=== PATIENT | male | born 1985 | race Caucasian/White ===

== ENCOUNTER 2018-06-24 10:40 | Inpatient (IN) | payer OTHER ==
[2018-06-24] MEDS ORDERED: MORPHINE SULFATE INJ 10 MG/ML VIAL IV ONE ×4 (10:47→12:46)
[2018-06-24] MEDS ORDERED: SODIUM CHLORIDE 0.9% 1000ML 1,000 ML IVS ONE (10:47)
--- NOTE | 2018-06-24 11:27 | CT ---
EXAM DESCRIPTION: Abdomen/Pelvis w/Contrast: Computed Tomography. CLINICAL HISTORY: 33 years Male crush injury to abdomen in oil field COMPARISON: Radiographs of the chest and right femur on the same visit. TECHNIQUE: Spiral-axial scans at 5 x 5 mm intervals through the abdomen and pelvis, after nonionic IV contrast without oral contrast. Axial 2.5 mm reconstructions. Coronal and sagittal 2.0 mm reconstructions. No delayed scans. No adverse reactions. Total Exam DLP: 479.9 mGy-cm. This exam was performed according to our departmental dose-optimization program which includes automated exposure control, adjustment of the mA and/or kV according to patient size and/or use of iterative reconstruction technique; to reduce radiation dose to as low as reasonably achievable (ALARA). FINDINGS: Lung bases and pleura: Negative. Liver, Stomach, Spleen, Adrenal Glands: Normal enhancement with no focal lesions. Craniocaudal dimension of the right lobe 19.4 cm. Minimal fluid in the stomach. Other solid organs are negative. Pancreas, Gallbladder, Ducts: Gallbladder is visualized. No duct dilation. Pancreas negative. Kidneys and Ureters: No contrast extravasation or evidence of trauma. No perirenal contrast or fatty stranding. No hydronephrosis with normal size and density. Mesentery: No free fluid or free air. No contrast extravasation into the peritoneum. No soft tissue mass. Aorta: Normal contour with no para-aortic soft tissue mass or contrast extravasation. Small Bowel: Normal caliber with diffuse fluid minimal gas. Terminal Ileum/Cecum: Normal caliber. Appendix not seen. Limited visualization of the mesentery. Colon: Proximal and mid colon slightly distended by gas and fecal matter. No distention distally. Fecal matter involving most of the colon. Pelvic Organs: No fluid or contrast in the anterior peritoneal reflection. Urinary bladder well-distended with contrast material. Spine and Bony Pelvis: Unremarkable. Abdominal Wall/Back Soft Tissues: Negative. IMPRESSION: 1. No free air or free fluid in the abdomen or pelvis. No contrast extravasation. No organ laceration or fracture is noted. 2. Mild hepatomegaly right lobe, no hematoma or subcapsular fluid. Electronically signed by: Shlomo Rowland MD 06/24/2018 11:25 AM GATE AGENT
--- NOTE | 2018-06-24 11:38 | RAD ---
EXAM DESCRIPTION: Femur, right: CR/DR/XR CLINICAL HISTORY: 33 years Male crush injury to abdomen in oil field COMPARISON: None. TECHNIQUE: 2 views right femur AP. Lateral. Upper and lower. Impression: Normal bone density. Cortex intact. No other fracture. No significant soft tissue swelling. No abnormal radiodense objects in the soft tissues. Electronically signed by: Shlomo Rowland MD 06/24/2018 11:36 AM [facility]
--- NOTE | 2018-06-24 11:40 | RAD ---
EXAM DESCRIPTION: Chest,1 View: CR/DR/XR. CLINICAL HISTORY: 33 years Male crush injury to abdomen in oil field COMPARISON: None. TECHNIQUE: ONE VIEW PORTABLE. AP 1054 hours, semierect position. IMPRESSION: Decreased inspiratory effort. No pulmonary contusion. No pleural effusion or pneumothorax. Heart size upper normal limits. No mediastinal widening. No pulmonary vascular congestion. Electronically signed by: Shlomo Rowland MD 06/24/2018 11:37 AM OCEAN BIOLOGIST
--- NOTE | 2018-06-24 12:19 | ED.PDOC ---
History of Present Illness - General Chief Complaint: Trauma Stated Complaint: pinned between rig and pump nino Time Seen by Provider: 06/24/18 10:45 Source: patient Exam Limitations: no limitations - History of Present Illness Initial Comments: the patient is a 33-year-old male presenting to the emergency room after having been pinned between an oil rig truck and the pumpjack. He was probably pinned for less than 5 minutes. the patient was able to walk after that was significant difficulty. He has severe pain in his right lower back, his abdomen and his pelvis. He does have indentions into his skin over his right upper buttock, his left upper thigh, his left anterior pelvis and he has a wire coil rope abrasion to the right upper quadrant anteriorly. there is no other deformity of the legs and he moves them well. Pulses are strong in the feet. Sensation is preserved. Areas surrounding the indentions are obviously uncomfortable to palpation. no obvious lacerations are seen. The pelvis does appear to be stable. His abdomen is sore to palpation primarily towards the right upper abdomen but also somewhat in general. The patient is very anxious. No chest pain or shortness of breath. He moves his upper extremities well. No evidence of any head or neck injury. Timing/Duration: other - Probably less than 5 minutes Severity: severe Improving Factors: nothing, medication Worsening Factors: movement Associated Symptoms: nausea/vomiting - mild nausea Allergies/Adverse Reactions: Allergies Sulfa Antibiotics Allergy (Verified 06/24/18 10:54) Home Medications: Ambulatory Orders Paxil 06/24/18 Review of Systems - Review of Systems Constitutional: States: no symptoms reported EENTM: States: no symptoms reported Respiratory: States: no symptoms reported Cardiology: States: no symptoms reported Gastrointestinal/Abdominal: States: see HPI Genitourinary: States: no symptoms reported Musculoskeletal: States: see HPI, back pain Skin: States: see HPI Neurological: States: anxiety Endocrine: States: no symptoms reported All other Systems: No Change from Baseline Past Medical History (General) - Patient Medical History Hx Stroke: No Hx Congestive Heart Failure: No Hx Diabetes: No Surgical History: tonsillectomy - Vaccination History Hx Tetanus, Diphtheria Vaccination: Yes Hx Influenza Vaccination: No - Social History Hx Tobacco Use: Yes Family Medical History - Family History Father Family History: Unknown Living Status: Unknown Physical Exam - Physical Exam General Appearance: Alert, Anxious, Obvious distress Eye Exam: bilateral normal Ears, Nose, Throat: hearing grossly normal, normal ENT inspection Neck: full range of motion, supple Respiratory: lungs clear, normal breath sounds, no respiratory distress, no accessory muscle use Cardiovascular/Chest: normal peripheral pulses, regular rate, rhythm, no edema Peripheral Pulses: radial,right: 2+, radial,left: 2+, dorsalis pedis,right: 2+, dorsalis pedis,left: 2+ Gastrointestinal/Abdominal: tenderness, other - see history of present illness. No palpable mass. Rectal Exam: deferred Back Exam: muscle spasm - to the right upperr buttock region, other - see history of present illness. No pain to the left side. No real spinnous process tenderness. No obvious step-off. Extremity: normal range of motion, non-tender, normal inspection, no pedal edema, normal capillary refill Neurologic: research affiliate II-XII nml as tested, alert, normal mood/affect, oriented x 3 Skin Exam: other - see history of present illness Comments: Vital Signs - 24 hr 06/24/18 06/24/18 06/24/18 10:52 11:15 11:30 Temperature 96.8 F L Pulse Rate [ 63 79 75 Left Brachial] Respiratory 20 22 22 Rate Blood Pressure 114/56 119/70 113/61 [Left Arm] O2 Sat by Pulse 99 97 97 Oximetry Progress - Progress Progress: 06/24/18 12:23 the patient is a 33-year-old male presenting to the emergency room secondary to a crush injury to his lower torso and pelvis. The patient is having substantial pain and has received several doses of morphine. He is also receiving a liter of IV fluids. I'm going to go ahead and give the patient in dose of heparin for blood clot prophylaxis as there is no evidence of active bleeding. Pending at this time is a lactic acid, muscle enzymes, d-dimer as well as amylase and lipase. Lactic acid, muscle enzymes and d-dimer will likely be elevated but these are simply for a baseline for following. CT scan of the abdomen and pelvis shows no evidence of pathology. Chest x-ray shows no evidence of any acute pathology. X-ray of the right femur shows no evidence of any acute pathology. The patient is going to be admitted for observation overnight to make sure he does not develop any significant complications from the crush injury. I do expect that he will develop some degree of rhabdomyolysis secondary to the crush injury. Additionally where the maximum points of pressure were applied he may develop some necrosis of the skin. There is no way to prevent this but he does need to be followed. Vital signs are remaining s table. No evidence of any internal bleeding. At the very least he will end up being sore for the next month. admit for observation overnight. - Results/Orders Results/Orders: Laboratory Tests 06/24/18 06/24/18 06/24/18 10:45 10:46 10:46 WBC 10.8 RBC 4.19 L Hgb 13.6 L Hct 39.5 L MCV 94.3 H MCH 32.4 H MCHC 34.4 RDW 13.2 Plt Count 277 MPV 8.7 Absolute Neuts (auto) 6.80 Absolute Lymphs (auto) 2.90 Absolute Monos (auto) 1.00 H Absolute Eos (auto) 0.10 Absolute Basos (auto) 0.00 Neutrophils % 62.9 Lymphocytes % 26.9 Monocytes % 9.3 H Eosinophils % 0.5 L Basophils % 0.4 Sodium 135 Potassium 3.3 L Chloride 104 Carbon Dioxide 24 Anion Gap 10.3 L BUN 20 H Creatinine 1.11 BUN/Creatinine Ratio 18.0 Random Glucose 136 H Serum Osmolality 274.8 L Lactic Acid 1.2 Calcium 8.4 Total Bilirubin 0.4 AST 75 H ALT 84 H Alkaline Phosphatase 77 Serum Total Protein 6.7 Albumin 3.9 Globulin 2.8 Albumin/Globulin Ratio 1.4 Urine Color Urine Appearance Urine pH Ur Specific [place] Urine Protein Urine Glucose (UA) Urine Ketones Urine Blood Urine Nitrite Urine Bilirubin Urine Urobilinogen Ur Leukocyte Esterase Urine RBC Urine WBC Ur Epithelial Cells Urine Bacteria 06/24/18 11:32 WBC RBC Hgb Hct MCV MCH MCHC RDW Plt Count MPV Absolute Neuts (auto) Absolute Lymphs (auto) Absolute Monos (auto) Absolute Eos (auto) Absolute Basos (auto) Neutrophils % Lymphocytes % Monocytes % Eosinophils % Basophils % Sodium Potassium Chloride Carbon Dioxide Anion Gap BUN Creatinine BUN/Creatinine Ratio Random Glucose Serum Osmolality Lactic Acid Calcium Total Bilirubin AST ALT Alkaline Phosphatase Serum Total Protein Albumin Globulin Albumin/Globulin Ratio Urine Color Yellow Urine Appearance Clear Urine pH 5.5 Ur Specific [place] 1.025 Urine Protein Trace Urine Glucose (UA) Negative Urine Ketones Trace Urine Blood Negative Urine Nitrite Negative Urine Bilirubin Negative Urine Urobilinogen 0.2 Ur Leukocyte Esterase Negative Urine RBC 0 Urine WBC 0 Ur Epithelial Cells 0 Urine Bacteria 0 Departure - Departure Clinical Impression: Inadequate pain control Crushing injury of abdomen Qualifiers: Encounter type: initial encounter Qualified Code(s): S38.1XXA - Crushing injury of abdomen, lower back, and pelvis, initial encounter Disposition: Admit Patient Departure Forms: ED Discharge - Pt. Copy, Patient Portal Self Enrollment Referrals: Flori Sosa NP [Primary Care Provider] - 1-2 Weeks Home Medications: Ambulatory Orders Paxil 06/24/18 Decision To Admit - Decistion To Admit Decision to Admit Reason: Medical Nature Decision to Admit Date: 06/24/18 Decision to Admit Time: 12:27
[2018-06-24] MEDS ORDERED: HEPARIN SODIUM (PORCINE) 5,000 U/ML VIAL SUBCU ONE (12:46)
[2018-06-24] MEDS ORDERED: DEX 5% W/NACL 0.45% 1000ML 1,000 ML IVS ONE (13:53)
--- NOTE | 2018-06-24 14:03 | HP ---
SUPERVISING PHYSICIAN: Marciano Alberto MD CHIEF COMPLAINT: Trauma. HISTORY OF PRESENT ILLNESS: This is a 33-year-old male patient who was brought to the Emergency Room after he was pinned between an oil rig truck and the pump nino. He was pinned for less than 5 minutes. He was able to walk after the injury, but it was with significant difficulty. The pain was mostly on his right side from the upper abdomen to the top of his thigh. He has indentions in his abdomen as well as across his hips and the top of his thighs from where he was pinned. Sensation was preserved. His pulses to his feet were strong. In the Emergency Room, his vital signs showed temperature 96.8, heart rate 63, blood pressure 114/56, respiratory rate 20, O2 saturation 99%. Labs were drawn. His WBCs were 10.8, hemoglobin 13.6, hematocrit 39.5. D-dimer 11.42. Chemistry showed sodium 135, potassium 3.3, chloride 104, carbon dioxide 24, BUN 20, creatinine 1.11, glucose 136, serum osmolality 274.8. AST 75, ALT 84. CPK 1,429, CK-MB 25. His initial lactic acid was 1.2 with a followup lactic acid of 0.8. Urinalysis was within normal limits. His CT of the abdomen and pelvis showed no free air or free fluid in the abdomen or pelvis, no contrast extravasation, no organ laceration or fracture noted. Mild hepatomegaly, right lobe, was noted. No hematoma or subcapsular fluid. His femur x-ray showed normal bone density, cortex intact. No other fracture. No significant soft tissue swelling. No abnormal radiodense objects in the soft tissue. His chest x-ray showed decreased inspiratory effort, no pulmonary contusion, no pleural effusion or pneumothorax. Heart size upper normal limits. No mediastinal widening, no pulmonary vascular congestion. Dr. Sandoval was consulted and saw him in the Emergency Room. He was given pain medications and fluids in the Emergency Room as well as some heparin. I was called for admission to the hospital. PAST MEDICAL HISTORY: 1. Depression. PAST SURGICAL HISTORY: 1. Tonsillectomy and adenoidectomy. OUTPATIENT MEDICATIONS: None. ALLERGIES: SULFA. SOCIAL HISTORY: He smokes one to two packs of cigarettes daily. He drinks alcohol moderately. He has a past history of marijuana use. REVIEW OF SYSTEMS: GENERAL: Negative for fever, fatigue or weight changes. HEENT: Negative for sinus symptoms, ear pain, vision changes or shortness of breath. RESPIRATORY: Negative for wheezing, coughing or shortness of breath. CARDIAC: Negative for chest pain, palpitations or tachycardia. GASTROINTESTINAL: As per history of present illness. GENITOURINARY: Negative for hematuria, dysuria or polyuria. MUSCULOSKELETAL: As per history of present illness. INTEGUMENTARY: As per history of present illness. NEUROLOGIC: Negative for headache, dizziness or seizures. PSYCHIATRIC: Positive for anxiety and depression. HEMATOLOGIC: Negative for easy bruising or bleeding problems. PHYSICAL EXAMINATION: VITAL SIGNS: Temperature 99.2. Heart rate 71. Blood pressure 135/71. Respiratory rate 18. O2 saturation 96% on room air. GENERAL: This is a 33-year-old male patient who is lying in his hospital bed. He is in no acute distress. HEENT: Normocephalic, atraumatic. Oropharynx is clear. NECK: Supple without mass. RESPIRATORY: Essentially clear to auscultation bilaterally. CHEST: There is equal rise and fall of the chest with inspiration and expiration. CARDIOVASCULAR: Regular rate and rhythm. GASTROINTESTINAL: Abdomen is soft, nondistended. It is diffusely tender to the right side that extends to the posterior area. BACK: There is no bruising, but he does have mild right CVA tenderness. EXTREMITIES: No cyanosis, clubbing or edema. He has normal range of motion. NEUROLOGIC: Awake, alert and oriented times three. Cranial nerves II-XII are grossly intact. SKIN: He has several areas on his abdomen and across his right thigh area with some mild contusions and erythematous area from the pressure of the injury. LABORATORY: Labs and films are as per history of present illness. IMPRESSION: 1. Crush injury, mostly right sided, especially to the right upper leg, the right abdomen and the right back with no apparent major internal injury. 2. Elevated CPK with significant muscle injury related to #1. 3. Elevated liver function tests. 4. Mild hypokalemia. PLAN: We will admit the patient to the hospital. He will be NPO overnight and we will give him fluids. I have also typed and crossed him for packed red blood cells. We will do serial CPKs and repeat his lab in the morning. He will have a proton pump inhibitor for ulcer prophylaxis, Zofran as antiemetic, SCDs for DVT prophylaxis and I will give him Dilaudid for pain medication. We will re- start his Paxil. Other traumatic injuries will be as per the recommendations of Dr. Sandoval. He will also be on telemetry and pulse oximetry. We will continue to monitor the patient closely and follow as needed. #[id number] [facility]
--- NOTE | 2018-06-24 14:13 | CONS ---
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 He complained of pain in his back, his legs, his anterior abdominal wall, right chest wall, but denies shortness of breath, chest pain, nausea, vomiting, fever or chills. Before this accident, he was in good health. PAST SURGICAL HISTORY: 1. Tonsillectomy and adenoidectomy. CURRENT MEDICATIONS: He takes no medications on a routine basis. ALLERGIES: NO KNOWN DRUG ALLERGIES. FAMILY HISTORY: Positive for carcinoma of the lung, lymphoma and colon cancer. He is not aware of diabetes or heart disease. SOCIAL HISTORY: The patient is and works in the [employer] field. He has one child. He has approximately 20 pack year history of tobacco use. He drinks moderately and has used marijuana in the past, but not recently. REVIEW OF SYSTEMS: No chest pain, shortness of breath, productive cough. No fever, chills, weight loss. No dysuria, polyuria. No upper respiratory symptoms. PHYSICAL EXAMINATION: GENERAL: The patient is awake, alert, cooperative, in mild to moderate distress. VITAL SIGNS: The patient is currently afebrile, normotensive. HEENT: Sclerae nonicteric. Mucous membranes moist. NECK: Without adenopathy or discomfort. BACK: There is tenderness over the lower lumbar spine and to the right side. This is where there is a small abrasion and a developing ecchymosis. CHEST: Equal breath sounds bilaterally anteriorly. HEART: Regular rhythm. ABDOMEN: Soft except for the right lower quadrant where, again, there is an ecchymosis and small abrasion and this appears to be abdominal wall pain. There is certainly no mass, rebound or guarding. RECTAL: Deferred. EXTREMITIES: Abrasions in the anterior thighs bilaterally with developing ecchymosis. LABORATORY: White count 10.8, hemoglobin 16.3, 62% neutrophils, 277 platelets. D-dimer is elevated at 11.42. CK 1429 with CK-MB 25. Troponin is normal. Lactic acid is normal. Creatinine 1.11. Potassium 3.3. Liver functions are all within normal limits except for AST and ALT which are mildly elevated. Amylase and lipase are within normal limits. Urinalysis is clear with no blood. Specific gravity 1.025. RADIOLOGY: CT scan basically revealed no injury to the spleen, adrenals, stomach. There is fluid in the stomach. Pancreas, gallbladder, bile ducts with no ductal dilation or fluid. Pancreas appears to be within normal limits as are the kidneys. There is no free fluid or free air with no contrast extravasation. Aorta has a normal contour with no fluid or contrast. There is a significant amount of fecal material. Basically, no injury, free air or free fluid is identified on the CT scan. ASSESSMENT: 1. Crush injury to the legs, back, anterior abdominal wall and right chest with no apparent major internal injury, significant of muscle of injury with the elevated CK. PLAN: Observation and NPO initially with careful hydration. We will follow the CK. We will also follow the liver function tests and the amylase and lipase. #[id number] [facility]
[2018-06-24] MEDS ORDERED: ONDANSETRON INJ 4 MG/2 ML VIAL IV PRN (14:33)
[2018-06-24] MEDS ORDERED: LEVALBUTEROL NEBS 1.25 MG/3 ML VIAL INH PRN (14:33)
[2018-06-24] MEDS ORDERED: MORPHINE SULFATE INJ 10 MG/ML VIAL IV PRN (14:33)
[2018-06-24] MEDS ORDERED: SODIUM CHLORIDE 0.9% (FLUSH) 10 ML SYG IV PRN (14:33)
[2018-06-24] MEDS ORDERED: KCL 20MEQ/D5 1/2NS 1,000 ML IVS ONE (14:37)
[2018-06-24] MEDS ORDERED: IV SET AND CAP CHANGE INJ INJ SCH (15:00)
[2018-06-24] MEDS ORDERED: PANTOPRAZOLE SODIUM IV 40 MG VIAL IV SCH (15:00)
[2018-06-24] MEDS ORDERED: SODIUM CHLORIDE 0.9% 500ML 500 ML IVS SCH (17:00)
[2018-06-24] MEDS: HYDROmorphone HCL INJ 2 MG/ML VIAL IV PRN ×3 (17:09→21:42)
[2018-06-24] MEDS ORDERED: PANTOPRAZOLE SODIUM IV 40 MG VIAL ONE (19:04)
[2018-06-24] MEDS ORDERED: KCL 20MEQ/D5 1/2NS 1,000 ML IVS PRN (19:30)
[2018-06-24] MEDS: LEVALBUTEROL NEBS 1.25 MG/3 ML VIAL INH SCH (20:50)
[2018-06-24] MEDS: SODIUM CHLORIDE 0.9% (FLUSH) 10 ML SYG IV SCH (20:55)
[2018-06-24] MEDS ORDERED: SODIUM BICARBONATE VIAL 50 MEQ/50 ML VIAL ONE (23:50)
[2018-06-24] MEDS ORDERED: DEXTROSE 5% 1000ML 1,000 ML IVS ONE (23:50)
[2018-06-25] MEDS: HYDROmorphone HCL INJ 2 MG/ML VIAL IV PRN ×6 (00:07→20:15)
[2018-06-25] MEDS ORDERED: SODIUM BICARBONATE VIAL 50 MEQ/50 ML VIAL ONE ×4 (04:53→18:40)
[2018-06-25] MEDS ORDERED: DEXTROSE 5% 1000ML 1,000 ML IVS ONE ×3 (04:53→18:39)
[2018-06-25] MEDS: SODIUM BICARBONATE VIAL 75 MEQ in DEXTROSE 5% 1000ML 1,000 ML IVS PRN ×5 (05:02→18:46)
[2018-06-25] MEDS: PANTOPRAZOLE SODIUM IV 40 MG VIAL IV SCH (06:12)
--- NOTE | 2018-06-25 07:01 | RAD ---
CLINICAL HISTORY: trauma COMPARISON: None. TECHNIQUE: XR CHEST 2 VIEWS 06/25/2018 5:00 AM MEDICAL CLINIC MANAGER FINDINGS: Cardiac silhouette is normal in size. Lungs are clear without consolidation, atelectasis, mass or edema. There is no pleural effusion. There is no pneumothorax. There are no acute osseous findings. IMPRESSION: Clear lungs. Electronically signed by: Juan Manuel Coffey MD 06/25/2018 6:59 AM MEDICAL CLINIC MANAGER
--- NOTE | 2018-06-25 07:04 | RAD ---
EXAM DESCRIPTION: Abdomen Flat Upright CLINICAL HISTORY: 33 years Male trauma COMPARISON: None TECHNIQUE: Supine and upright views of the abdomen are obtained. FINDINGS: There is no evidence of free air. The bowel gas pattern is normal. Small calcifications in the pelvis are most likely phleboliths. If there is a history of renal colic, distal ureteral calculi are also considerations. There is no organomegaly. The visualized lung bases show no gross consolidation. [] There are no discernible acute osseous abnormalities or areas of osseous destruction/osteoblastic disease. [] IMPRESSION: No acute intra-abdominal process. [Small calcifications in the pelvis are most likely phleboliths. If there is a history of renal colic, distal ureteral calculi are also considerations. ] Electronically signed by: Josselin Martinez MD 06/25/2018 7:01 AM [facility]
[2018-06-25] MEDS: LEVALBUTEROL NEBS 1.25 MG/3 ML VIAL INH SCH ×2 (07:30→19:38)
[2018-06-25] MEDS: SODIUM CHLORIDE 0.9% (FLUSH) 10 ML SYG IV SCH ×2 (08:33→20:37)
[2018-06-25] MEDS: PARoxetine HCL 20 MG TAB PO SCH (08:33)
[2018-06-25] MEDS ORDERED: HYDROmorphone HCL INJ 2 MG/ML VIAL IV ONE (09:31)
[2018-06-25] MEDS: NICOTINE PATCH 14 MG TD SCH (10:05)
[2018-06-25] MEDS ORDERED: MAGNESIUM HYDROXIDE 30 ML UD PO ONE (10:47)
[2018-06-25] MEDS ORDERED: KETOROLAC TROMETHAMINE INJ 30 MG/ML VIAL IV ONE (11:00)
[2018-06-25] MEDS ORDERED: MAGNESIUM SULFATE PREMIX 2GM 2 GM in PREMIX BAG 1 BAG IVPB ONE (12:19)
[2018-06-25] MEDS ORDERED: MAGNESIUM SULFATE PREMIX 2GM 50 ML IVPB ONE (12:43)
[2018-06-25] MEDS: HYDROcodone 10MG/APAP 325MG 1 EA TAB PO PRN ×2 (13:21→17:51)
[2018-06-25] MEDS: KETOROLAC TROMETHAMINE INJ 30 MG/ML VIAL IV SCH ×2 (16:12→23:53)
[2018-06-25] MEDS ORDERED: TEMAZEPAM 15 MG CAP PO PRN (18:20)
[2018-06-26] MEDS: HYDROcodone 10MG/APAP 325MG 1 EA TAB PO PRN ×5 (01:08→21:00)
[2018-06-26] MEDS ORDERED: SODIUM BICARBONATE VIAL 50 MEQ/50 ML VIAL ONE ×3 (01:33→18:04)
[2018-06-26] MEDS ORDERED: DEXTROSE 5% 1000ML 1,000 ML IVS ONE ×3 (01:33→18:04)
[2018-06-26] MEDS: SODIUM BICARBONATE VIAL 75 MEQ in DEXTROSE 5% 1000ML 1,000 ML IVS PRN ×3 (01:39→18:26)
[2018-06-26] MEDS: HYDROmorphone HCL INJ 2 MG/ML VIAL IV PRN ×6 (03:16→22:14)
[2018-06-26] MEDS: PANTOPRAZOLE SODIUM IV 40 MG VIAL IV SCH (06:06)
[2018-06-26] MEDS: NICOTINE PATCH 14 MG TD SCH (09:00)
[2018-06-26] MEDS: PARoxetine HCL 20 MG TAB PO SCH (09:00)
[2018-06-26] MEDS: KETOROLAC TROMETHAMINE INJ 30 MG/ML VIAL IV SCH ×3 (09:00→23:40)
[2018-06-26] MEDS: LEVALBUTEROL NEBS 1.25 MG/3 ML VIAL INH SCH ×2 (09:02→20:53)
[2018-06-26] MEDS: SODIUM CHLORIDE 0.9% (FLUSH) 10 ML SYG IV SCH ×2 (09:07→20:59)
--- NOTE | 2018-06-26 10:05 | PN ---
SUPERVISING PHYSICIAN: Marciano Alberto MD DATE: 06/25/2018 SUBJECTIVE: The patient is lying in bed. He says he has tolerated his meals without difficulty. His pain is under much better control since he is on [place]. He is still quite sore but has had no nausea or vomiting. He has had no new onset of abdominal pain other than what he had before. No signs of bleeding. He did ask for something to help him sleep. OBJECTIVE: VITAL SIGNS: Temperature 98.7, heart rate 75, blood pressure 128/64, respiratory rate 16, 02 saturation 95% on room air. RESPIRATORY: Essentially clear to auscultation bilaterally. CARDIAC: Regular rate and rhythm. GI: Abdomen soft, it continues to be quite tender on the right side but the tenderness is diffuse. It does extend around to his back. EXTREMITIES: There is some mild ecchymoses and some abrasions across his anterior portion of his upper thigh, they are also tender to palpation. N EURO: He is awake, alert, and oriented x3. LABORATORY: WBC 10.5, hemoglobin 12.2, hematocrit 35.8. Electrolytes are unremarkable except for his magnesium is 1.7. AST 153, ALT 87, CPK is 4,422. His urine drug screen is negative for everything except cannabinoids. His abdominal x-ray shows no acute intraabdominal processes. His chest x-ray shows clear lungs. All other labs and films have been reviewed via the EMR. ASSESSMENT: 1. Crush injury, mostly right sided, especially to the right upper leg, the right abdomen and the right back with no apparent major internal injury. 2. Elevated CPK with significant muscle injury related to #1. 3. Elevated liver function tests that have continued to elevate. 4. Mild hypokalemia. PLAN: We will continue present supportive care. I will continue with D5W with 1.5 amps of bicarb at 150 until his CPK starts to decline. He will have every 6 hours CPKs until they start declining. Repeat his lab in the morning. He received magnesium supplementation today. Dr. Sandoval recommended that he receive a clear liquid diet, he tolerated that without problems. We advanced that to a regular diet. His Dilaudid was discontinued and he has Tyrone ordered every 4 hours. He also received some milk of magnesia and he may need to be on Miralax since he is on narcotics. He also has gotten 30 mg of Toradol and I have given him 15 mg of Toradol every 6 hours x 5 doses. All trauma considerations will be per Dr. Sandoval, general surgeon, and we will continue to monitor him closely and follow as needed. Dr. Alberto is the collaborating physician available for consultation. #[id number] [facility]
[2018-06-26] MEDS ORDERED: MAGNESIUM HYDROXIDE 30 ML UD PO ONE ×2 (18:48→19:15)
[2018-06-26] MEDS: BISACODYL TAB 5 MG TAB PO SCH (20:12)
[2018-06-26] MEDS ORDERED: ENOXAPARIN SODIUM 40 MG/0.4 ML SYG SUBCU ONE (20:51)
[2018-06-26] MEDS: ENOXAPARIN SODIUM 40 MG/0.4 ML SYG SUBCU SCH (20:59)
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
[2018-06-27] MEDS ORDERED: SODIUM BICARBONATE VIAL 50 MEQ/50 ML VIAL ONE ×2 (01:52→09:55)
[2018-06-27] MEDS ORDERED: DEXTROSE 5% 1000ML 1,000 ML IVS ONE ×2 (01:52→09:55)
[2018-06-27] MEDS: SODIUM BICARBONATE VIAL 75 MEQ in DEXTROSE 5% 1000ML 1,000 ML IVS PRN ×2 (02:03→10:01)
[2018-06-27] MEDS: HYDROcodone 10MG/APAP 325MG 1 EA TAB PO PRN ×2 (02:08→06:33)
[2018-06-27] MEDS: HYDROmorphone HCL INJ 2 MG/ML VIAL IV PRN ×3 (02:10→09:14)
[2018-06-27] MEDS: PANTOPRAZOLE SODIUM IV 40 MG VIAL IV SCH (06:32)
[2018-06-27] MEDS: LEVALBUTEROL NEBS 1.25 MG/3 ML VIAL INH SCH (08:19)
[2018-06-27] MEDS: NICOTINE PATCH 14 MG TD SCH (09:07)
[2018-06-27] MEDS: BISACODYL TAB 5 MG TAB PO SCH (09:07)
[2018-06-27] MEDS: ENOXAPARIN SODIUM 40 MG/0.4 ML SYG SUBCU SCH (09:07)
[2018-06-27] MEDS: PARoxetine HCL 20 MG TAB PO SCH (09:09)
[2018-06-27 10:09] VITALS: O2SAT 97
[2018-06-27] MEDS ORDERED: IBUPROFEN 200 MG TAB PO PRN (12:01)
[2018-06-27] MEDS ORDERED: HYDROcodone/IBUPROFEN 7.5/200 1 EA TAB PO PRN (12:02)
[2018-06-27 13:50] VITALS: BP 129/77; TEMP 98.2
[2018-06-27] MEDS ORDERED: ENOXAPARIN SODIUM 40 MG/0.4 ML SYG SUBCU SCH (20:00)
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
== END 2018-06-27 14:30 | disposition home or self-care (01) | DRG 965 ==
LOC: ER 10:40 → MS 14:03
PROVIDERS: ADMIT Nurse Practitioner Acute Care; ATTEND Nurse Practitioner Family
PROC: BW211ZZ Computerized Tomography (CT Scan) of Abdomen and Pelvis using Low Osmolar Contrast (ICD-10-PCS; principal; 2018-06-24)
DX: S38.1XXA Crushing injury of abdomen, lower back, and pelvis, initial encounter (principal); S77.11XA Crushing injury of right thigh, initial encounter; W31.89XA Contact with other specified machinery, initial encounter; T79.6XXA Traumatic ischemia of muscle, initial encounter; R74.8 Abnormal levels of other serum enzymes; E87.6 Hypokalemia; F32.9 Major depressive disorder, single episode, unspecified; F17.210 Nicotine dependence, cigarettes, uncomplicated; Y93.89 Activity, other specified; Y92.89 Other specified places as the place of occurrence of the external cause; Y99.0 Civilian activity done for income or pay; Z88.2 Allergy status to sulfonamides

== ENCOUNTER → 2018-06-30 | Outpatient (CLI) | payer OTHER | LOC: LAB.O 09:22 | PROVIDERS: ATTEND Nurse Practitioner Family | DX: M62.82 Rhabdomyolysis (principal) ==